=== PATIENT | female | born 1990 | race African-American/Black ===

== ENCOUNTER 2019-06-17 20:48 | Emergency (ER) | payer BC, MEDICAID ==
[~2019-06-17] VITALS: Ht 167.6 cm; Wt 90.0 kg
[2019-06-17] MEDS ORDERED: KETOROLAC 60MG/2ML VIAL IM ONE (23:00)
[2019-06-17 23:13] VITALS: BP 119/67
== END 2019-06-17 23:14 | disposition home or self-care (01) ==
LOC: ER 20:48
DX: J02.9 Acute pharyngitis, unspecified (principal); R03.0 Elevated blood-pressure reading, without diagnosis of hypertension
CPT/HCPCS: 96372; 99283; J1885

== ENCOUNTER 2019-07-05 13:02 | Emergency (ER) | payer BC, MEDICAID ==
[~2019-07-05] VITALS: Ht 167.6 cm; Wt 90.0 kg
[2019-07-05 13:13] VITALS: BP 135/94
[2019-07-05] MEDS ORDERED: KETOROLAC 30MG/ML VIAL IM ONE (13:45)
[2019-07-05 14:07] LABS: CLARITY URINE CLOUDY (CLEAR); COLOR URINE YELLOW (YELLOW); KETONES URINE TRACE (NEGATIVE); LEUKOCYTE ESTERASE URINE 2+ (NEGATIVE); NITRITE URINE NEGATIVE (NEGATIVE); OCCULT BLOOD URINE 2+ (NEGATIVE); PROTEIN URINE 3+ (NEGATIVE)
[2019-07-05] MEDS ORDERED: AZITHROMYCIN 500 MG TABLET PO ONE (14:45)
[2019-07-05] MEDS ORDERED: CEFTRIAXONE SODIUM 250 MG/VIAL IM ONE (14:45)
[2019-07-05] MEDS ORDERED: IBUPROFEN 400MG TABLET PO ONE (15:45)
[2019-07-05 15:47] LABS: BASOPHILS % 0.3 % (0.0-2.0); HEMATOCRIT. 37.3 % (36.0-48.0); HEMOGLOBIN. 12.7 g/dL (12.0-16.0); LYMPHOCYTES % 11.9 % (20.0-50.0); MEAN CORPUSCULAR HEMOGLOBIN 30.1 pg (28.0-32.0); MEAN CORPUSCULAR VOLUME 88.5 fL (81.0-99.0); MEAN PLATELET VOLUME 9.5 fl (7.4-10.4); MONOCYTES % 4.9 % (2.0-8.0); NEUTROPHILS % 82.9 % (40.0-76.0); PLATELET 248 x1000/uL (130-400); RED BLOOD CELL COUNT 4.21 mill/uL (4.2-5.4); RED CELL DISTRIBUTION WIDTH 14.4 % (11.6-14.6)
[2019-07-05 15:52] LABS: CHLORIDE 104 mEq/L (98-107)
[2019-07-10 09:06] LABS: NEISSERIA GONORRHOEAE NAA Negative (Negative)
== END 2019-07-05 16:08 | disposition home or self-care (01) ==
LOC: ER 13:02
DX: N76.0 Acute vaginitis (principal); D64.9 Anemia, unspecified
CPT/HCPCS: 36415; 80053; 81003; 81025; 85025; 87077; 87086; 87186; 87210; 87491; 87591; 96372; 99284; J0696; J1885

== ENCOUNTER 2019-11-18 20:47 | Emergency (ER) | payer BC, MEDICAID ==
[~2019-11-18] VITALS: Ht 167.6 cm; Wt 93.0 kg
[2019-11-18 23:24] VITALS: BP 131/67
== END 2019-11-18 23:25 | disposition home or self-care (01) ==
LOC: ER 20:47
DX: R06.02 Shortness of breath (principal); R05 Cough; R07.89 Other chest pain
CPT/HCPCS: 71045; 93005; 99283

== ENCOUNTER 2024-01-27 16:16 | Emergency (ER) | payer BC, MEDICAID ==
[~2024-01-27] VITALS: Ht 167.6 cm; Wt 95.0 kg
[2024-01-27 16:33] VITALS: O2SAT 100
[2024-01-27] MEDS ORDERED: TOPUD PO (17:25)
[2024-01-27] MEDS ORDERED: AMOX1TAB16 PO (17:25)
[2024-01-27] MEDS: ACETAMINOPHEN 325MG TABLET PO ONE (17:48)
[2024-01-27 17:57] VITALS: BP 138/78; PULSE 88; RESP 18; TEMP 37.05852; O2SAT 99
[2024-01-27] MEDS ORDERED: LIDO5JEL8 MM (18:14)
[2024-01-27] MEDS ORDERED: lidocaine (18:14)
[2024-01-28] MEDS ORDERED: ONDA4TAB50 PO (19:07)
[2024-01-28] MEDS ORDERED: NAPR-681 PO (19:07)
[2024-01-28] MEDS ORDERED: OMEP20CA14 PO (19:07)
== END 2024-01-27 17:58 | disposition home or self-care (01) ==
LOC: ER 16:16
DX: J02.9 Acute pharyngitis, unspecified (principal); F19.90 Other psychoactive substance use, unspecified, uncomplicated; D64.9 Anemia, unspecified
CPT/HCPCS: 87430; 99283

== ENCOUNTER 2024-01-28 16:41 | Emergency (ER) | payer MEDICAID ==
[~2024-01-28] VITALS: Ht 167.6 cm; Wt 84.0 kg
[~2024-01-28 16:41] MED LIST: AMOX1TAB16 PO; LIDO5JEL8 MM; TOPUD PO; lidocaine
[2024-01-28 16:44] VITALS: TEMP 98.2; O2SAT 18
[2024-01-28 16:45] VITALS: O2SAT 100
[2024-01-28] MEDS: METHYLPREDNISOLONE SOD SUCC 125MG/2ML (ACT-O-VIAL) IM STA (18:50)
[2024-01-28 18:51] VITALS: BP 147/87; PULSE 111; RESP 20
[2024-01-28] MEDS: KETOROLAC 30MG/ML VIAL IM STA (18:51)
[2024-01-28] MEDS: PENICILLIN G BENZATHINE 1,200,000 UNITS/2ML SYR IM ONE (18:51)
[2024-01-28] MEDS ORDERED: NAPR-681 PO (19:07)
[2024-01-28] MEDS ORDERED: ONDA4TAB50 PO (19:07)
[2024-01-28] MEDS ORDERED: OMEP20CA14 PO (19:07)
== END 2024-01-28 19:16 | disposition home or self-care (01) ==
LOC: ER 16:41
DX: J02.9 Acute pharyngitis, unspecified (principal); K52.9 Noninfective gastroenteritis and colitis, unspecified; I10 Essential (primary) hypertension; F19.90 Other psychoactive substance use, unspecified, uncomplicated
CPT/HCPCS: 96372; 99284; J1885; J2919; J0561; Z7610